=== PATIENT | female | born 1990 | race African-American/Black ===

== ENCOUNTER 2019-07-15 13:58 | Emergency (ER) | payer BC ==
[~2019-07-15] VITALS: Ht 167.6 cm; Wt 87.0 kg
[2019-07-15 17:50] VITALS: BP 127/66
== END 2019-07-15 18:00 | disposition home or self-care (01) ==
LOC: ER 16:31
DX: E10.8 Type 1 diabetes mellitus with unspecified complications (principal); Z79.4 Long term (current) use of insulin; Z91.013 Allergy to seafood
CPT/HCPCS: 99283